=== PATIENT | male | born 1960 | race African-American/Black ===

== ENCOUNTER 2017-12-07 13:38 | Outpatient (CLI) | payer BC ==
--- NOTE | 2017-12-07 15:23 | MRI ---
MRI OF THE RIGHT SHOULDER WITHOUT CONTRAST: Date: 12/07/17 INDICATION: Impingement syndrome of the right shoulder. COMPARISON: None. FINDINGS: The rotator cuff is intact. There is some mild undersurface irregularity of the supraspinatus with mo derate tendinosis. Biceps anchor complex appears intact. There is mild AC joint osteoarthrosis. No mu scular atrophy is evident. There is a Type II acromion. Biceps tendon is located. The anterior inferi or glenohumeral labral ligamentous complex appears within normal limits. No muscular atrophy is ident ified. IMPRESSION: 1. Mild undersurface irregularity of the supraspinatus with moderate supraspinatus tendinosis. 2. Mild AC joint osteoarthrosis. POS: [facility]
== END 2017-12-07 13:39 | disposition home or self-care (01) ==
LOC: TBSIIMAG 13:38
PROVIDERS: ATTEND Internal Medicine Hematology & Oncology
DX: M75.41 Impingement syndrome of right shoulder (principal); C61 Malignant neoplasm of prostate; C79.51 Secondary malignant neoplasm of bone; D40.0 Neoplasm of uncertain behavior of prostate; M19.011 Primary osteoarthritis, right shoulder; M75.81 Other shoulder lesions, right shoulder

== ENCOUNTER 2017-12-26 12:20 | Emergency (ER) | payer BC | END 2017-12-26 14:25 | disposition home or self-care (01) | LOC: ERS 12:20 | DX: J01.90 Acute sinusitis, unspecified (principal); I10 Essential (primary) hypertension; F17.210 Nicotine dependence, cigarettes, uncomplicated; Z79.899 Other long term (current) drug therapy; Z85.46 Personal history of malignant neoplasm of prostate; Z85.830 Personal history of malignant neoplasm of bone | CPT/HCPCS: 99283 ==

== ENCOUNTER 2017-12-30 00:08 | Emergency (ER) | payer BC ==
[2017-12-30 01:16] LABS: #Basophils 0.1 thou/uL (0.0-0.2); #Eosinphils 0.1 thou/uL (0.0-0.7); #Lymphocytes 1.9 thou/uL (1.20-3.40); #Monocytes 0.5 thou/uL (0.11-0.59); #Neutrophils 2.7 thou/uL (1.40-6.50); %Basophils 1.4 % (0.0-1.0); %Eosinophils 1.1 % (0.0-10.0); %Lymphocytes 35.5 % (21.0-51.0); %Monocytes 9.7 % (0.0-10.0); %Neutrophils 52.3 % (42.0-75.0); Hemoglobin 15.8 g/dL (14.0-18.0); Mean Corpuscular HGB CONC 32.8 g/dL (32.0-36.0); Mean Corpuscular Hemoglobin 29.3 pg (27.0-31.0); Mean Corpuscular Volume 89.4 fl (80.0-94.0); Mean Platelet Volume 6.1 fL (7.4-10.4); Platelet Count 286 thou/uL (130-400); RBC Distribution Width 12.6 % (11.5-14.5); Red Blood Cell (RBC) Count 5.38 mill/uL (4.70-6.10); White Blood Cell (WBC) Count 5.2 thou/uL (4.8-10.8)
[2017-12-30 01:36] LABS: ALT (SGPT) 16 U/L (8-55); AST (SGOT) 18 U/L (5-34); Albumin 4.9 g/dL (3.5-5.0); Alkaline Phosphatase 62 U/L (40-150); Anion Gap 13 mmol/L (10-20); BUN (Urea Nitrogen) 27 mg/dL (8.4-25.7); Bilirubin, Total 0.5 mg/dL (0.2-1.2); Calc. Creatinine Clearance 0 mL/min (70-130); Calcium 10.5 mg/dL (7.8-10.44); Carbon Dioxide 25 mmol/L (22-29); Chloride 96 mmol/L (98-107); Estimated GFR-MDRD Greater than 90; Globulin 3.9 g/dL (2.4-3.5); Glucose 107 mg/dL (70-105); Potassium 3.9 mmol/L (3.5-5.1); Protein, Total 8.8 g/dL (6.0-8.3); Sodium 130 mmol/L (136-145)
[2017-12-30] MEDS ORDERED: Ondansetron ODT 4 MG TAB ONE (02:29)
== END 2017-12-30 05:05 | disposition home or self-care (01) ==
LOC: ERS 00:08
DX: R11.2 Nausea with vomiting, unspecified (principal); I10 Essential (primary) hypertension; F17.210 Nicotine dependence, cigarettes, uncomplicated
CPT/HCPCS: 36415; 80053; 83690; 85025; 96360; 96361; 99406; Q0162

== ENCOUNTER 2019-04-29 12:30 | Emergency (ER) | payer BC ==
[2019-04-29] MEDS ORDERED: Meclizine HCl 25 MG TAB ONE (13:19)
[2019-04-29 13:36] LABS: #Basophils 0.1 thou/uL (0.0-0.2); #Eosinphils 0.1 thou/uL (0.0-0.7); #Lymphocytes 2.6 thou/uL (1.20-3.40); #Monocytes 0.4 thou/uL (0.11-0.59); #Neutrophils 4.6 thou/uL (1.40-6.50); %Basophils 1.1 % (0.0-1.0); %Eosinophils 1.3 % (0.0-10.0); %Lymphocytes 33.3 % (21.0-51.0); %Monocytes 5.5 % (0.0-10.0); %Neutrophils 58.8 % (42.0-75.0); Hemoglobin 12.1 g/dL (14.0-18.0); Mean Corpuscular HGB CONC 33.4 g/dL (32.0-36.0); Mean Corpuscular Hemoglobin 30.8 pg (27.0-31.0); Mean Platelet Volume 6.7 fL (7.4-10.4); Platelet Count 254 thou/uL (130-400); RBC Distribution Width 12.1 % (11.5-14.5); Red Blood Cell (RBC) Count 3.95 mill/uL (4.70-6.10); White Blood Cell (WBC) Count 7.8 thou/uL (4.8-10.8)
--- NOTE | 2019-04-29 13:40 | CT ---
CT BRAIN 04/29/19 PROVIDED CLINICAL HISTORY: Nausea and dizziness. FINDINGS: No comparisons. The ventricular system appears normal in size and morphology. There is no evidence for intracranial h emorrhage. There is no shift of the midline structures. There is asymmetric CSF density in the right CP angle that could reflect an arachnoid cyst. This could also reflect encephalomalacia involving a portion of the right cerebellar hemisphere. The extracranial soft tissues and osseous structures demo nstrate an unremarkable CT appearance. IMPRESSION: No evidence for an acute intracranial abnormality. POS: [facility]
--- NOTE | 2019-04-29 13:48 | RAD ---
CHEST ONE VIEW: HISTORY: Altered mental status. Dizziness. Nausea. COMPARISON: 02/10/2016 FINDINGS: Stable calcified granuloma anteriorly in the right lower lobe, overlying the right hemidiaphragm. Hea rt size is within normal limits. The lungs are clear. IMPRESSION: 1. No significant acute intrathoracic disease. 2. Old granulomatous disease. 3. Stable from prior study. POS: [facility]
[2019-04-29 14:08] LABS: ALT (SGPT) 14 U/L (8-55); AST (SGOT) 22 U/L (5-34); Albumin 4.7 g/dL (3.5-5.0); Alkaline Phosphatase 60 U/L (40-150); Anion Gap 14 mmol/L (10-20); BUN (Urea Nitrogen) 18 mg/dL (8.4-25.7); Bilirubin, Total 0.3 mg/dL (0.2-1.2); CK (CPK) 226 U/L (30-200); Calc. Creatinine Clearance 0 mL/min (70-130); Calcium 9.7 mg/dL (7.8-10.44); Carbon Dioxide 21 mmol/L (22-29); Chloride 104 mmol/L (98-107); Estimated GFR-MDRD 64; Glucose 82 mg/dL (70-105); Lipase 33 U/L (8-78); Potassium 3.7 mmol/L (3.5-5.1); Protein, Total 7.7 g/dL (6.0-8.3); Sodium 135 mmol/L (136-145)
[2019-04-29] MEDS ORDERED: Dexamethasone 10 MG/ML VIAL ONE (14:22)
== END 2019-04-29 14:40 | disposition home or self-care (01) ==
LOC: ERS 12:30
DX: R11.0 Nausea (principal); T46.5X5A Adverse effect of other antihypertensive drugs, initial encounter; I95.9 Hypotension, unspecified; I10 Essential (primary) hypertension; F17.210 Nicotine dependence, cigarettes, uncomplicated; Z79.899 Other long term (current) drug therapy
CPT/HCPCS: 70450; 71045; 80053; 82550; 83690; 84484; 85025; 93005; 96361; 96374; J1100; J8597

== ENCOUNTER 2019-05-30 10:34 | Outpatient (CLI) | payer BC ==
--- NOTE | 2019-05-30 15:36 | NM ---
WHOLE BODY BONE SCAN: HISTORY: Prostate cancer. Secondary malignant neoplasm of bone. Rising PSA. COMPARISON: None. RADIOPHARMACEUTICAL: Technetium 99m MDP 29 millicuries injected intravenously. FINDINGS: There is focally intense uptake noted in the thoracic spine, likely within the T9 vertebra. No other suspicious abnormalities are seen. Tracer excretion through the kidneys is within normal limits. IMPRESSION: Findings suspicious for thoracic vertebral metastasis. Correlation with contrast enhanced MRI of the thoracic spine is recommended. POS: [facility]
== END 2019-05-30 10:35 | disposition home or self-care (01) ==
LOC: NM 10:34
PROVIDERS: ATTEND Internal Medicine Hematology & Oncology
DX: C61 Malignant neoplasm of prostate (principal); C79.51 Secondary malignant neoplasm of bone; R97.21 Rising PSA following treatment for malignant neoplasm of prostate; D40.0 Neoplasm of uncertain behavior of prostate
CPT/HCPCS: 78306; A9503

== ENCOUNTER 2019-09-10 16:34 | Emergency (ER) | payer BC, SELFPAY ==
[2019-09-10 17:07] LABS: Hemoglobin 14.3 g/dL (14.0-18.0); Mean Corpuscular HGB CONC 31.7 g/dL (32.0-36.0); Mean Corpuscular Hemoglobin 29.3 pg (27.0-31.0); Mean Corpuscular Volume 92.5 fL (78.0-98.0); RBC Distribution Width 11.4 % (11.5-14.5); Red Blood Cell (RBC) Count 4.87 mill/uL (4.70-6.10); White Blood Cell (WBC) Count 7.7 thou/uL (4.8-10.8)
[2019-09-10] MEDS ORDERED: Aspirin Chewable 81 MG TAB ONE (17:14)
[2019-09-10] MEDS ORDERED: Nitroglycerin 0.4 MG TAB 1 EACH ONE (17:14)
[2019-09-10 17:29] LABS: ALT (SGPT) 12 U/L (8-55); AST (SGOT) 22 U/L (5-34); Albumin 4.8 g/dL (3.5-5.0); Alkaline Phosphatase 56 U/L (40-110); Anion Gap 16 mmol/L (10-20); BUN (Urea Nitrogen) 15 mg/dL (8.4-25.7); Bilirubin, Total 0.2 mg/dL (0.2-1.2); Calc. Creatinine Clearance 0 mL/min (70-130); Calcium 9.4 mg/dL (7.8-10.44); Carbon Dioxide 18 mmol/L (22-29); Chloride 104 mmol/L (98-107); Estimated GFR-MDRD Greater than 90; Globulin 3.4 g/dL (2.4-3.5); Glucose 99 mg/dL (70-105); Potassium 5.1 mmol/L (3.5-5.1); Protein, Total 8.2 g/dL (6.0-8.3); Sodium 133 mmol/L (136-145)
[2019-09-10 17:31] LABS: Band 3 % (5-11); Eosinophils 1 % (0-10); Hypochromia SLIGHT = 6-15 cells (100X) (0-5/hpf); Lymphocytes 49 % (21-51); MDiff Complete? YES; Mean Platelet Volume 8.5 fL (7.4-10.4); Monocytes 6 % (0-10); Neutrophil 36 % (42-75); Platelet Clumps MODERATE; Platelet Morphology Comment PLT clumps seen-ADEQ; Reactive Lymphocytes 5 % (0-10)
--- NOTE | 2019-09-10 17:46 | RAD ---
Exam: Chest one view HISTORY:Chest pain. 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 Pneumothorax: None Osseous abnormalities: None IMPRESSION: Patchy interstitial opacity in the right lung base.
== END 2019-09-10 18:50 | disposition home or self-care (01) ==
LOC: ERS 16:34
DX: J18.9 Pneumonia, unspecified organism (principal); R07.2 Precordial pain; I10 Essential (primary) hypertension; F17.210 Nicotine dependence, cigarettes, uncomplicated; Z79.899 Other long term (current) drug therapy
CPT/HCPCS: 36415; 71045; 80053; 83690; 84484; 85025; 85379; 93005; 94760

== ENCOUNTER 2020-01-15 08:50 | Outpatient (CLI) | payer MEDICARE ==
--- NOTE | 2020-01-15 09:03 | RAD ---
Left foot 3 views HISTORY: Injury. FINDINGS: Lisfranc joint alignment is anatomic. Plantar arch is maintained. Scattered osteophytosis throughout the foot. Subtle areas of heterotopic ossification adjacent to the metatarsophalangeal joints and cuboid. Small amount of dystrophic calcification associated with the distal Achilles tendon. No acute fracture, dislocation, or aggressive osseous erosions. IMPRESSION : No acute osseous abnormalities are demonstrated.
== END 2020-01-15 08:51 | disposition home or self-care (01) ==
LOC: RAD-FRANK 08:50
PROVIDERS: ATTEND Nurse Practitioner Family
DX: M79.672 Pain in left foot (principal)

== ENCOUNTER 2020-10-03 13:38 | Emergency (ER) | payer SELFPAY | END 2020-10-03 14:20 | disposition home or self-care (01) | LOC: ERS 13:38 | DX: I10 Essential (primary) hypertension (principal); F17.210 Nicotine dependence, cigarettes, uncomplicated; Z85.46 Personal history of malignant neoplasm of prostate; Z85.830 Personal history of malignant neoplasm of bone; Z79.899 Other long term (current) drug therapy | CPT/HCPCS: 99283 ==

== ENCOUNTER 2021-10-09 14:39 | Emergency (ER) | payer SELFPAY ==
[2021-10-09 17:10] LABS: #Basophils 0.1 thou/uL (0.0-0.2); #Eosinphils 0.1 thou/uL (0.0-0.7); #Lymphocytes 2.9 thou/uL (1.20-3.40); #Monocytes 0.4 thou/uL (0.11-0.59); #Neutrophils 3.5 thou/uL (1.40-6.50); %Basophils 1.5 % (0.0-1.0); %Lymphocytes 40.6 % (21.0-51.0); %Monocytes 5.9 % (0.0-10.0); Hemoglobin 15.2 g/dL (14.0-18.0); Mean Corpuscular HGB CONC 32.7 g/dL (32.0-36.0); Mean Corpuscular Hemoglobin 33.4 pg (27.0-31.0); Mean Platelet Volume 5.8 fL (7.4-10.4); Platelet Count 244 thou/uL (130-400); RBC Distribution Width 11.2 % (11.5-14.5); Red Blood Cell (RBC) Count 4.55 mill/uL (4.70-6.10); White Blood Cell (WBC) Count 7.1 thou/uL (4.8-10.8)
[2021-10-09] MEDS ORDERED: HYDROcodone/Acetaminophen 5/325 mg Tablet ONE (17:25)
[2021-10-09] MEDS ORDERED: Ketorolac Tromethamine 30 MG/ML VIAL ONE (17:25)
[2021-10-09 17:32] LABS: ALT (SGPT) 11 U/L (8-55); AST (SGOT) 15 U/L (5-34); Albumin 4.3 g/dL (3.4-4.8); Alkaline Phosphatase 64 U/L (40-110); Anion Gap 18 mmol/L (10-20); BUN (Urea Nitrogen) 8 mg/dL (8.4-25.7); Bilirubin, Total 0.4 mg/dL (0.2-1.2); Calc. Creatinine Clearance 0 mL/min (70-130); Calcium 9.5 mg/dL (7.8-10.44); Carbon Dioxide 20 mmol/L (23-31); Chloride 100 mmol/L (98-107); Globulin 3.1 g/dL (2.4-3.5); Glucose 91 mg/dL (80-115); Lipase 25 U/L (8-78); Potassium 3.8 mmol/L (3.5-5.1); Protein, Total 7.4 g/dL (5.8-8.1); Sodium 134 mmol/L (136-145)
== END 2021-10-09 18:11 | disposition home or self-care (01) ==
LOC: ERS 14:39
DX: S29.012A Strain of muscle and tendon of back wall of thorax, initial encounter (principal); I10 Essential (primary) hypertension; F17.210 Nicotine dependence, cigarettes, uncomplicated; C61 Malignant neoplasm of prostate; X50.1XXA Overexertion from prolonged static or awkward postures, initial encounter
CPT/HCPCS: 36415; 71045; 72128; 80053; 83690; 84484; 85025; 93005; 96372; J1885

== ENCOUNTER 2022-01-29 16:55 | Emergency (ER) | payer MEDICARE ==
[2022-01-29 18:01] LABS: #Eosinphils 0.1 thou/uL (0.0-0.7); #Lymphocytes 2.8 thou/uL (1.20-3.40); #Monocytes 0.3 thou/uL (0.11-0.59); #Neutrophils 2.9 thou/uL (1.40-6.50); %Basophils 0.2 % (0.0-1.0); %Eosinophils 2.4 % (0.0-10.0); %Lymphocytes 45.2 % (21.0-51.0); %Monocytes 5.2 % (0.0-10.0); Hemoglobin 11.4 g/dL (14.0-18.0); Mean Corpuscular HGB CONC 32.8 g/dL (32.0-36.0); Platelet Count 222 thou/uL (130-400); RBC Distribution Width 11.5 % (11.5-14.5); Red Blood Cell (RBC) Count 3.47 mill/uL (4.70-6.10); White Blood Cell (WBC) Count 6.2 thou/uL (4.8-10.8)
[2022-01-29 18:29] LABS: ALT (SGPT) 8 U/L (8-55); AST (SGOT) 14 U/L (5-34); Albumin 3.2 g/dL (3.4-4.8); Alkaline Phosphatase 56 U/L (40-110); Anion Gap 11 mmol/L (10-20); BUN (Urea Nitrogen) 5 mg/dL (8.4-25.7); Bilirubin, Total 0.2 mg/dL (0.2-1.2); Calc. Creatinine Clearance 0 mL/min (70-130); Calcium 8.7 mg/dL (7.8-10.44); Carbon Dioxide 24 mmol/L (23-31); Chloride 107 mmol/L (98-107); Glucose 96 mg/dL (80-115); Potassium 3.1 mmol/L (3.5-5.1); Protein, Total 6.2 g/dL (5.8-8.1); Sodium 139 mmol/L (136-145)
[2022-01-29 18:37] LABS: Bacteria/HPF None Seen HPF (None Seen); Bilirubin Negative (Negative); Blood, Urine 1+ (Negative); Clarity Clear (Clear); Glucose, Urine (Dipstick) Normal (Negative); Ketone, Urine Negative (Negative); Leukocyte 25 Leu/uL (Negative); Nitrite Negative (Negative); Protein, Urine (Dipstick) Negative (Neg-Trace); RBC/HPF 0-3 HPF (0-3); Specific Gravity, Urine 1.006 (1.002-1.036); Squamous Epithelial 0-3 HPF (0-3); Urobilinogen Normal mg/dL (Less than 2)
== END 2022-01-29 19:40 | disposition home or self-care (01) ==
LOC: ERS 16:55
DX: M79.89 Other specified soft tissue disorders (principal); I10 Essential (primary) hypertension; F17.210 Nicotine dependence, cigarettes, uncomplicated; Z79.899 Other long term (current) drug therapy
CPT/HCPCS: 71045; 80053; 81003; 81015; 83880; 84484; 85025; 93005; 93970

== ENCOUNTER 2022-05-01 08:28 | Emergency (ER) | payer MEDICARE ==
[2022-05-01] MEDS ORDERED: Ketorolac Tromethamine 30 MG/ML VIAL ONE (10:21)
== END 2022-05-01 11:08 | disposition home or self-care (01) ==
LOC: ERS 08:28
DX: M54.50 Low back pain, unspecified (principal); I10 Essential (primary) hypertension; F17.210 Nicotine dependence, cigarettes, uncomplicated; V89.2XXA Person injured in unspecified motor-vehicle accident, traffic, initial encounter; Y92.410 Unspecified street and highway as the place of occurrence of the external cause
CPT/HCPCS: 72128; 72131; 96372; J1885